=== PATIENT | male | born 1965 | race Caucasian/White ===

== ENCOUNTER 2018-01-29 10:56 | Emergency (ER) | payer OTHER, SELFPAY ==
[2018-01-29 11:07] VITALS: BP 159/99; PULSE 112; RESP 20; TEMP 36.7; O2SAT 96; BMI 29.2
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
[2018-01-29 14:27] VITALS: BP 141/84; PULSE 81; RESP 18; TEMP 36.7; O2SAT 97
== END 2018-01-29 14:27 | disposition home or self-care (01) ==
PROVIDERS: Emergency Provider Emergency Medicine
DX: M47.812 Spondylosis without myelopathy or radiculopathy, cervical region (principal); V49.3XXA Car occupant (driver) (passenger) injured in unspecified nontraffic accident, initial encounter; Y92.414 Local residential or business street as the place of occurrence of the external cause
CPT/HCPCS: 70450; 71101; 72125; 72170; 73030; 99282